=== PATIENT | male | born 1950 | race Caucasian/White ===

== ENCOUNTER 2024-03-19 16:32 | Inpatient (IN) | payer OTHER ==
[~2024-03-19] VITALS: Ht 180.3 cm; Wt 47.6 kg
[2024-03-19 16:43] LABS: BASOPHILS ABSOLUTE AUTO 0.07 K/mm3 (0.00-0.23); BASOPHILS PERCENT AUTO 0 % (0-2); EOSINOPHILS ABSOLUTE AUTO 0.01 K/mm3 (0.00-0.68); EOSINOPHILS PERCENT AUTO 0 % (0-6); Hematocrit 38.9 % (37.0-53.0); Hemoglobin 13.1 g/dL (13.5-17.5); IMMATURE GRAN PERCENT AUTO 1 % (0-1); LYMPHOCYTES ABSOLUTE AUTO 0.88 K/mm3 (0.84-5.20); LYMPHOCYTES PERCENT AUTO 4 % (21-46); MONOCYTES ABSOLUTE AUTO 0.94 K/mm3 (0.16-1.47); MONOCYTES PERCENT AUTO 5 % (4-13); Mean Corpuscular HGB 29.2 pg (26.0-34.0); Mean Corpuscular HGB Conc 33.7 g/dL (31.5-36.5); Mean Corpuscular Volume 87 fL (80-100); Mean Platelet Volume 8.2 fL (9.1-12.4); NEUTROPHILS ABSOLUTE AUTO 18.24 K/mm3 (1.96-9.15); NEUTROPHILS PERCENT AUTO 90 % (41-73); Platelet Count 639 K/mm3 (150-400); RDW Coefficient Variation 13.4 % (11.7-14.2); RDW Standard Deviation 42.5 fL (35.1-46.3); Red Blood Cell Count 4.49 M/mm3 (4.30-5.90); White Blood Cell Count 20.34 K/mm3 (4.00-11.30)
[2024-03-19 17:09] LABS: Albumin, Blood 2.4 g/dL (3.4-5.0); Albumin/Globulin Ratio 0.4 (0.8-1.8); Bilirubin, Total 0.4 mg/dL (0.1-1.0); Bun/Creatinine Ratio 18.2 (12.0-20.0); Calcium, Blood 9.7 mg/dL (8.5-10.1); Creatinine, Blood 0.77 mg/dL (0.60-1.20); Globulin, Blood 5.6 g/dL (2.2-4.0); Potassium, Blood 3.1 mmol/L (3.5-5.5)
[2024-03-19 18:11] LABS: Influenza A, PCR NEGATIVE (NEGATIVE); Influenza B, PCR NEGATIVE (NEGATIVE); Resp Syncytial Virus, PCR NEGATIVE (NEGATIVE); SARS-Cov-2 (COVID-19) PCR, MMC NEGATIVE (NEGATIVE)
[2024-03-19] MEDS ORDERED: Piperacillin/Tazobactam Sod 3.375 GM in NS 100 ML IV ONE (18:50)
[2024-03-19] MEDS ORDERED: Lactated Ringer's 1,000 ML IV ONE (20:15)
[2024-03-19] MEDS ORDERED: FLU VACC TS2024-25(6MOS UP)/PF 45 MCG/0.5 ML SYRINGE IM ONE (20:40)
[2024-03-19] MEDS ORDERED: Magnesium Hydroxide Conc 10 ML UDC PO PRN (20:40)
[2024-03-19] MEDS ORDERED: Lactobacil 2-S.Thermo-Bifido 1 1 Cap PO SCH (21:00)
[2024-03-19] MEDS ORDERED: Folic Acid 1 MG in NS 50 ML IV SCH (21:07)
[2024-03-19] MEDS ORDERED: Thiamine HCl 100 MG in NS 50 ML IV SCH (21:15)
[2024-03-19] MEDS ORDERED: NS KCl 20mEq 1,000 ML IV SCH (21:39)
[2024-03-19 22:11] VITALS: BP 117/78
[2024-03-19] MEDS ORDERED: NS 250 ML IV PRN (22:30)
--- NOTE | 2024-03-19 23:13 | NUR ---
ADMIT NOTE HANDOFF RECEIVED FROM GUMMING MACHINE OPERATOR BERNADETTE. PT ARRIVED TO FLOOR VIA GURNEY. PT ORIENTED TO UNIT. PERSONAL POSSESSIONS WITH PT. IV FLUIDS INFUSING. CALL BUTTON WITHIN REACH. BED ALARM IS ACTIVE.
[2024-03-20] MEDS ORDERED: Piperacillin/Tazobactam Sod 4.5 GM in NS 100 ML IV SCH
[2024-03-20] MEDS ORDERED: FINA5 PO (00:48)
[2024-03-20] MEDS ORDERED: TAMS.4ER PO (00:48)
[2024-03-20] MEDS ORDERED: LOSA50 PO (00:48)
[2024-03-20] MEDS ORDERED: EUTHYROX88 MCG PO (00:49)
[2024-03-20] MEDS ORDERED: AMLO10 PO (00:49)
--- NOTE | 2024-03-20 03:43 | NUR ---
SHIFT SUMMARY ADMITTED THIS SHIFT FOR PNEUMONIA. FULL CODE. IV ANTIB ARE SCHEDULED. ST SWALLOW EVAL IS PLANNED. HX OF ETOH - DAILY DRINKER, TONGUE CANCER W/DYSPHAGIA. HE IS ON RA. A&O X4. 1 ASSIST TO BSC DUE TO WEAKNESS. HE HAS NOT BEEN EATING WELL DUE TO HIS DYSPHAGIA. HE LOOKS FRAIL. NS KCL 20 MEQ INFUSING. HE IS A [facility] PATIENT. HE LIVES W/FAMILY.
[2024-03-20 05:37] LABS: BASOPHILS ABSOLUTE AUTO 0.06 K/mm3 (0.00-0.23); BASOPHILS PERCENT AUTO 0 % (0-2); EOSINOPHILS ABSOLUTE AUTO 0.05 K/mm3 (0.00-0.68); EOSINOPHILS PERCENT AUTO 0 % (0-6); Hematocrit 36.5 % (37.0-53.0); Hemoglobin 12.3 g/dL (13.5-17.5); IMMATURE GRAN PERCENT AUTO 2 % (0-1); LYMPHOCYTES PERCENT AUTO 7 % (21-46); MONOCYTES ABSOLUTE AUTO 0.81 K/mm3 (0.16-1.47); MONOCYTES PERCENT AUTO 6 % (4-13); Mean Corpuscular HGB 29.2 pg (26.0-34.0); Mean Corpuscular HGB Conc 33.7 g/dL (31.5-36.5); Mean Corpuscular Volume 87 fL (80-100); Mean Platelet Volume 8.2 fL (9.1-12.4); NEUTROPHILS ABSOLUTE AUTO 11.65 K/mm3 (1.96-9.15); NEUTROPHILS PERCENT AUTO 85 % (41-73); Platelet Count 565 K/mm3 (150-400); RDW Coefficient Variation 13.3 % (11.7-14.2); RDW Standard Deviation 42.1 fL (35.1-46.3); Red Blood Cell Count 4.21 M/mm3 (4.30-5.90); White Blood Cell Count 13.77 K/mm3 (4.00-11.30)
[2024-03-20] MEDS ORDERED: Levothyroxine Sodium 0.088 MG Tab PO SCH (06:00)
[2024-03-20 06:08] LABS: Magnesium, Blood 1.5 mg/dL (1.6-2.4)
[2024-03-20 06:15] LABS: Albumin, Blood 2.1 g/dL (3.4-5.0); Albumin/Globulin Ratio 0.4 (0.8-1.8); Bilirubin, Total 0.5 mg/dL (0.1-1.0); Bun/Creatinine Ratio 18.1 (12.0-20.0); Calcium, Blood 8.9 mg/dL (8.5-10.1); Creatinine, Blood 0.55 mg/dL (0.60-1.20); Phosphorus, Blood 2.5 mg/dL (2.5-4.9); Potassium, Blood 3.1 mmol/L (3.5-5.5); Thyroid Stimulating Hormone 0.242 uIU/mL (0.360-4.800); Total Protein, Blood 7.1 g/dL (6.4-8.2)
[2024-03-20 06:30] VITALS: BP 124/73
[2024-03-20] MEDS ORDERED: Potassium Chl 20MEQ/Water100ML 100 ML IV SCH (07:10)
[2024-03-20] MEDS ORDERED: Mag Sulfate 1 GM/D5% 100ML 100 ML IV STA (07:11)
[2024-03-20] MEDS ORDERED: Magnesium Sulf 2 GM/Water 50ML 50 ML IV ONE (07:45)
[2024-03-20 07:55] LABS: Free Thyroxine 1.42 ng/dL (0.70-1.60)
[2024-03-20 07:57] LABS: Triiodothyronine, Free 0.85 pg/mL (2.18-3.98)
[2024-03-20 08:53] VITALS: BP 122/73
[2024-03-20] MEDS ORDERED: Finasteride 5 MG Tab PO SCH (09:00)
[2024-03-20] MEDS ORDERED: Tamsulosin HCl 0.4 MG Cap PO SCH (09:00)
[2024-03-20] MEDS ORDERED: Aspirin 81 MG Chew PO SCH (09:00)
[2024-03-20] MEDS ORDERED: Enoxaparin 40 MG/0.4 ML SYR SC SCH (09:00)
--- NOTE | 2024-03-20 13:55 | NUR ---
PALLIATIVE CARE ATTEMPTED VISIT: PER PT REQUEST, HOLD VISIT FOR TODAY AND ATTEMPT VISIT TOMORROW 03/21/24.
--- NOTE | 2024-03-20 15:35 | NUR ---
SPOKE WITH PT'S DTRRADHA BY PHONE THIS AFTERNOON. DTR WILL BE HERE TOMORROW 03/21/24 @ 1400 FOR A GOC CONVERSATION WITH PC, SPEECH AND PATIENT.
[2024-03-20 15:37] VITALS: BP 103/69
--- NOTE | 2024-03-20 18:12 | NUR ---
SHIFT SUMMARY PT A&OX4, VSS, AMB W/ ASSIST, VOIDING, AND DENIED PAIN. KCL CONT TO INFUSE PER ORDER. IV K AND MAG GIVEN THIS AM. PALLIATIVE CARE TO SPEAK W/ PT AND PT'S DAUGHTER TOMORROW. PT IS STRICTLY NPO INCLUDING MEDICATIONS, SEE SPEECH THERAPY NOTE. PT WORKED W/ PHYSICAL THERAPY THIS SHIFT, SEE THERAPY NOTE. CALL LIGHT WITHIN REACH AND PT ABLE TO MAKE NEEDS KNOWN.
[2024-03-20 19:25] VITALS: BP 123/74
[2024-03-21 03:35] VITALS: BP 112/73
[2024-03-21 05:29] LABS: BASOPHILS ABSOLUTE AUTO 0.05 K/mm3 (0.00-0.23); BASOPHILS PERCENT AUTO 0 % (0-2); EOSINOPHILS ABSOLUTE AUTO 0.03 K/mm3 (0.00-0.68); EOSINOPHILS PERCENT AUTO 0 % (0-6); Hematocrit 35.6 % (37.0-53.0); Hemoglobin 11.9 g/dL (13.5-17.5); IMMATURE GRAN ABSOLUTE AUTO 0.23 K/mm3 (0.00-0.10); IMMATURE GRAN PERCENT AUTO 2 % (0-1); LYMPHOCYTES PERCENT AUTO 7 % (21-46); MONOCYTES ABSOLUTE AUTO 0.71 K/mm3 (0.16-1.47); MONOCYTES PERCENT AUTO 6 % (4-13); Mean Corpuscular HGB Conc 33.4 g/dL (31.5-36.5); Mean Corpuscular Volume 87 fL (80-100); Mean Platelet Volume 8.2 fL (9.1-12.4); NEUTROPHILS ABSOLUTE AUTO 10.32 K/mm3 (1.96-9.15); NEUTROPHILS PERCENT AUTO 85 % (41-73); Platelet Count 594 K/mm3 (150-400); RDW Coefficient Variation 13.5 % (11.7-14.2); RDW Standard Deviation 43.4 fL (35.1-46.3); White Blood Cell Count 12.14 K/mm3 (4.00-11.30)
[2024-03-21 05:51] LABS: Albumin, Blood 2.2 g/dL (3.4-5.0); Albumin/Globulin Ratio 0.4 (0.8-1.8); Bilirubin, Total 0.4 mg/dL (0.1-1.0); Bun/Creatinine Ratio 14.1 (12.0-20.0); Calcium, Blood 8.6 mg/dL (8.5-10.1); Creatinine, Blood 0.5 mg/dL (0.60-1.20); Total Protein, Blood 7.2 g/dL (6.4-8.2)
--- NOTE | 2024-03-21 06:00 | NUR ---
SHIFT SUMMARY: Pt is admitted for PNA and is a full code. Is alert and able to make needs known. ADLs have been 1p. Denies pain or discomfort when asked.
[2024-03-21] MEDS ORDERED: Potassium Chl 20MEQ/Water100ML 100 ML IV SCH (07:15)
[2024-03-21 07:43] VITALS: BP 126/76
[2024-03-21 15:37] VITALS: BP 123/79
[2024-03-21] MEDS ORDERED: D5W-LR 1,000 ML IV SCH (16:00)
--- NOTE | 2024-03-21 16:40 | NUR ---
Met with pt and daughter Petra along with . 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 Pt and daughter both in agreement to try a PEG tube. Surgical consult being placed by .
--- NOTE | 2024-03-21 18:16 | NUR ---
PT ALERT AND ORIENTED, VITAL SIGNS STABLE, NON-TELE, AND ROOM AIR. PT IS STRICT NPO DUE TO UNSAFE SWALLOWING. AM BLOOD SUGAR 68 MD AWARE, PENDING CONSULT FOR REAL ESTATE INSPECTOR. PALLIATIVE CARE RN AND SPEECH THERAPIST SPOKE WITH PT AND DAUGHTER THIS AFTERNOON, AND THEY AGREED TO A PEG TUBE FOR PT NUTRITIONAL NEEDS, CONSULT IN PLACE. PT IV FLUIDS CHANGED TO D5W/LR, PM BLOOD SUGAR UP TO 97. PT REPORTS HX OF ETOH, 8 BEERS/DAY, CIWA-0. K+ REPLACED PER ORDER, IV ZOSYN CONTINUED. URINAL AT BEDSIDE WITH GOOD URINE OUTPUT. PT ABLE TO MAKE NEEDS KNOWN, BED IN LOW POSITION, CALL LIGHT IN REACH.
[2024-03-21 19:44] VITALS: BP 129/77
[2024-03-22 01:57] VITALS: BP 139/82
[2024-03-22 06:43] LABS: BASOPHILS ABSOLUTE AUTO 0.04 K/mm3 (0.00-0.23); BASOPHILS PERCENT AUTO 0 % (0-2); EOSINOPHILS ABSOLUTE AUTO 0.04 K/mm3 (0.00-0.68); EOSINOPHILS PERCENT AUTO 0 % (0-6); Hematocrit 39.3 % (37.0-53.0); Hemoglobin 13.2 g/dL (13.5-17.5); IMMATURE GRAN ABSOLUTE AUTO 0.23 K/mm3 (0.00-0.10); IMMATURE GRAN PERCENT AUTO 2 % (0-1); LYMPHOCYTES PERCENT AUTO 9 % (21-46); MONOCYTES ABSOLUTE AUTO 0.83 K/mm3 (0.16-1.47); MONOCYTES PERCENT AUTO 7 % (4-13); Mean Corpuscular HGB 28.6 pg (26.0-34.0); Mean Corpuscular HGB Conc 33.6 g/dL (31.5-36.5); Mean Corpuscular Volume 85 fL (80-100); Mean Platelet Volume 8.2 fL (9.1-12.4); NEUTROPHILS ABSOLUTE AUTO 9.98 K/mm3 (1.96-9.15); NEUTROPHILS PERCENT AUTO 82 % (41-73); Platelet Count 629 K/mm3 (150-400); RDW Coefficient Variation 13.5 % (11.7-14.2); RDW Standard Deviation 42.4 fL (35.1-46.3); Red Blood Cell Count 4.61 M/mm3 (4.30-5.90); White Blood Cell Count 12.22 K/mm3 (4.00-11.30)
[2024-03-22 07:12] LABS: Albumin, Blood 2.3 g/dL (3.4-5.0); Albumin/Globulin Ratio 0.4 (0.8-1.8); Bilirubin, Total 0.4 mg/dL (0.1-1.0); Bun/Creatinine Ratio 8.2 (12.0-20.0); Calcium, Blood 8.8 mg/dL (8.5-10.1); Creatinine, Blood 0.49 mg/dL (0.60-1.20); Globulin, Blood 5.6 g/dL (2.2-4.0); Potassium, Blood 2.6 mmol/L (3.5-5.5); Total Protein, Blood 7.9 g/dL (6.4-8.2)
[2024-03-22] MEDS ORDERED: Potassium Chl 20MEQ/Water100ML 100 ML IV SCH (07:35)
[2024-03-22 07:37] VITALS: BP 139/84
[2024-03-22 15:51] VITALS: BP 132/87
[2024-03-22 17:37] LABS: Magnesium, Blood 1.5 mg/dL (1.6-2.4); Phosphorus, Blood 1.7 mg/dL (2.5-4.9)
[2024-03-22 17:43] LABS: Bun/Creatinine Ratio 8.9 (12.0-20.0); Calcium, Blood 8.7 mg/dL (8.5-10.1); Creatinine, Blood 0.45 mg/dL (0.60-1.20); Potassium, Blood 3.2 mmol/L (3.5-5.5)
--- NOTE | 2024-03-22 18:20 | NUR ---
DR. DE LUNA NOTIFIED POTASSIUM LEVEL IS 3.2, MAGNESIUM LEVEL 1.5, AND PHOSPHORUS IS 1.7. DR. DE LUNA STATED SHE WOULD LET NIGHT TEAM KNOW.
--- NOTE | 2024-03-22 18:39 | NUR ---
SHIFT SUMMARY PT A&OX4. PT ADMITTED DUE TO PNEUMONIA. PT RECIEVED ANTIBIOTICS THROUGH SHIFT. PT HAS A PRODUCTIVE COUGH. PT REPORTS NO COMPLAINTS OF SOB AND CHEST DISCOMFORT. PT REPORTED NO PAIN THROUGH SHIFT. PT USES CANE WHEN AMBULATING. PT USES URINAL. D5LR RUNNING AT 75ML/HR PT'S DAUGHTER AT BEDSIDE. CALL LIGHT IN REACH AND USES CALL LIGHT APPROPRIATELY. PT NPO. PT HAVING PEG TUBE PLACEMENT TOMORROW. NO ACUTE CHANGES HAPPENED DURING SHIFT.
[2024-03-22] MEDS ORDERED: Potassium Phosphate Dibasic 30 MM in Dextrose 5% 500 ML IV STA (18:40)
[2024-03-22] MEDS ORDERED: Magnesium Sulf 2 GM/Water 50ML 50 ML IV STA (18:40)
[2024-03-22] MEDS ORDERED: Calcium Chloride 10% 1,000 MG in NS 50 ML IV ONE (18:45)
[2024-03-22 19:55] VITALS: BP 128/83
[2024-03-23 01:39] VITALS: BP 132/85
--- NOTE | 2024-03-23 04:47 | NUR ---
PREVENTIVE MEDICINE PHYSICIAN SUMMARY VSS. ALERT AND ORIENTED. SPEECH DIFFICULT, BUT ABLE TO VOICE HIGH PITCHED WORDS. OTHERWISE COMMUNICATES WITH BODY LANGUAGE AND MOUTHING THE WORDS. NPO. RECEIVING IVF AND MEDS ORDERED. CONTINENT WITH URINAL, NO BM OF THIS WRITING. HAS HAD VISITORS THROUGHOUT FIRST PART OF SHIFT. ABLE TO DO OWN ORAL CARE WITH INSTRUMENTS AT BEDSIDE. ABLE TO REPOSITION SELF IN BED WITHOUT ASSIST FOR COMFORT. RAILS UP X 2, BED IN LOW POSITION AND CALL LIGHT IN REACH FOR SAFETY. HAS BEEN RESTING QUIETLY WITH FEW INTERRUPTIONS SINCE AROUND MIDNIGHT. WILL CONTINUE TO MONITOR.
[2024-03-23 06:28] LABS: BASOPHILS ABSOLUTE AUTO 0.05 K/mm3 (0.00-0.23); BASOPHILS PERCENT AUTO 1 % (0-2); EOSINOPHILS ABSOLUTE AUTO 0.05 K/mm3 (0.00-0.68); EOSINOPHILS PERCENT AUTO 1 % (0-6); Hematocrit 40.2 % (37.0-53.0); Hemoglobin 13.8 g/dL (13.5-17.5); IMMATURE GRAN ABSOLUTE AUTO 0.12 K/mm3 (0.00-0.10); IMMATURE GRAN PERCENT AUTO 1 % (0-1); LYMPHOCYTES ABSOLUTE AUTO 1.01 K/mm3 (0.84-5.20); LYMPHOCYTES PERCENT AUTO 9 % (21-46); MONOCYTES ABSOLUTE AUTO 0.67 K/mm3 (0.16-1.47); MONOCYTES PERCENT AUTO 6 % (4-13); Mean Corpuscular HGB Conc 34.3 g/dL (31.5-36.5); Mean Corpuscular Volume 85 fL (80-100); Mean Platelet Volume 8.1 fL (9.1-12.4); NEUTROPHILS ABSOLUTE AUTO 8.85 K/mm3 (1.96-9.15); NEUTROPHILS PERCENT AUTO 82 % (41-73); Platelet Count 580 K/mm3 (150-400); RDW Coefficient Variation 13.6 % (11.7-14.2); RDW Standard Deviation 42.1 fL (35.1-46.3); Red Blood Cell Count 4.76 M/mm3 (4.30-5.90); White Blood Cell Count 10.75 K/mm3 (4.00-11.30)
[2024-03-23 07:27] LABS: Albumin, Blood 2.3 g/dL (3.4-5.0); Albumin/Globulin Ratio 0.4 (0.8-1.8); Bilirubin, Total 0.3 mg/dL (0.1-1.0); Bun/Creatinine Ratio 10.1 (12.0-20.0); Calcium, Blood 9.6 mg/dL (8.5-10.1); Creatinine, Blood 0.49 mg/dL (0.60-1.20); Globulin, Blood 5.3 g/dL (2.2-4.0); Potassium, Blood 3.2 mmol/L (3.5-5.5); Total Protein, Blood 7.6 g/dL (6.4-8.2)
[2024-03-23 07:45] VITALS: BP 122/84
[2024-03-23] MEDS ORDERED: Potassium Chl 20MEQ/Water100ML 100 ML IV SCH (12:05)
[2024-03-23] MEDS ORDERED: Lactated Ringer's 1,000 ML IV SCH (13:15)
[2024-03-23] MEDS ORDERED: Thiamine HCl 300 MG in NS 100 ML IV SCH (14:00)
[2024-03-23 15:33] VITALS: BP 132/87
--- NOTE | 2024-03-23 18:41 | NUR ---
SHIFT SUMMARY PT A&OX4, PT ADMITTED DUE TO PNEUMONIA. PT RECIEVED ANTIBIOTIC TODAY, THIAMINE AND POTASSIUM GIVEN, LR IS RUNNING AT 150ML/HR. PT HAS OCCASSIONAL AND PRODUCTIVE COUGH. PT IS NPO. PT USES MOUTH SWABS TO CLEAN MOUTH. PLAN FOR PEG TUBE PLACEMENT TOMORROW. PT AMBULATES WITH CANE BUT IS SBA DUE TO WEAKNESS. NO ACUTE CHANGES NOTED. PT VOIDES USING URINAL. PT ON RA AND HAS NO COMPLAINTS OF SOB. PT CALLS APPROPRIATELY, CALL LIGHT IN REACH. FAMILY AT BEDSIDE.
[2024-03-23 20:12] VITALS: BP 139/92
[2024-03-24] VITALS (8 sets, daily range): BP systolic 95–157; BP diastolic 60–98
--- NOTE | 2024-03-24 03:57 | NUR ---
BRAKE ADJUSTER SUMMARY VSS. ALERT AND ORIENTED. ABLE TO MAKE NEEDS KNOWN WITH HIGH PITCHED VOICE AND MOUTHING WORDS AND BODY LANGUAGE. IV ANTIBIOTICS, AND IVF INFUSING PER MD ORDERS - SEE MAR FOR DETAILS. NPO. CONTINENT OF URINE. HOB ELEVATED FOR BREATHING COMFORT. RESTING QUIETLY AT INTERVALS WITH OCCASIONAL INTERRUPTION. VERBALIZED LOOKING FORWARD TO POSSIBLE SURGICAL PROCEDURE LATER TODAY FOR TUBE PLACEMENT FOR FEEDING. ABLE TO REPOSITION SELF IN BED WITHOUT ASSIST, RAILS UP X 2 AND BED IN LOW POSITION FOR SAFETY. WILL CONTINUE TO MONITOR.
[2024-03-24 06:05] LABS: BASOPHILS ABSOLUTE AUTO 0.04 K/mm3 (0.00-0.23); BASOPHILS PERCENT AUTO 0 % (0-2); EOSINOPHILS ABSOLUTE AUTO 0.04 K/mm3 (0.00-0.68); EOSINOPHILS PERCENT AUTO 0 % (0-6); Hematocrit 38.8 % (37.0-53.0); Hemoglobin 13.1 g/dL (13.5-17.5); IMMATURE GRAN ABSOLUTE AUTO 0.13 K/mm3 (0.00-0.10); IMMATURE GRAN PERCENT AUTO 1 % (0-1); LYMPHOCYTES ABSOLUTE AUTO 1.13 K/mm3 (0.84-5.20); LYMPHOCYTES PERCENT AUTO 10 % (21-46); MONOCYTES ABSOLUTE AUTO 0.68 K/mm3 (0.16-1.47); MONOCYTES PERCENT AUTO 6 % (4-13); Mean Corpuscular HGB 28.7 pg (26.0-34.0); Mean Corpuscular HGB Conc 33.8 g/dL (31.5-36.5); Mean Corpuscular Volume 85 fL (80-100); Mean Platelet Volume 8.1 fL (9.1-12.4); NEUTROPHILS ABSOLUTE AUTO 9.75 K/mm3 (1.96-9.15); NEUTROPHILS PERCENT AUTO 83 % (41-73); Platelet Count 502 K/mm3 (150-400); RDW Coefficient Variation 13.6 % (11.7-14.2); RDW Standard Deviation 42.2 fL (35.1-46.3); Red Blood Cell Count 4.57 M/mm3 (4.30-5.90); White Blood Cell Count 11.77 K/mm3 (4.00-11.30)
[2024-03-24 06:31] LABS: Bun/Creatinine Ratio 14.5 (12.0-20.0); Calcium, Blood 8.8 mg/dL (8.5-10.1); Creatinine, Blood 0.55 mg/dL (0.60-1.20); Magnesium, Blood 1.6 mg/dL (1.6-2.4); Phosphorus, Blood 2.5 mg/dL (2.5-4.9); Potassium, Blood 2.6 mmol/L (3.5-5.5)
[2024-03-24] MEDS ORDERED: Magnesium Sulf 2 GM/Water 50ML 50 ML IV STA (07:48)
[2024-03-24] MEDS ORDERED: Potassium Chl 20MEQ/Water100ML 100 ML IV SCH (07:50)
[2024-03-24] MEDS ORDERED: propofoL 40 ML IV ONE (09:58)
[2024-03-24] MEDS ORDERED: Lactated Ringer's 1,000 ML IV SCH (10:00)
[2024-03-24] MEDS ORDERED: NS 500 ML IV SCH (10:40)
--- NOTE | 2024-03-24 10:42 | NUR ---
03/24/24 1042 Kaitlin Israel WITH CINTHIA NAVARRO; SEE ANESTHESIA RECORDS.
[2024-03-24] MEDS ORDERED: FentaNYL Citrate 50 MCG/ML 2 ML Injection IV PRN (12:15)
[2024-03-24] MEDS ORDERED: Levothyroxine Sodium 0.05 MG Tab PO SCH (15:00)
--- NOTE | 2024-03-24 18:14 | NUR ---
SHIFT SUMMARY PT A&O TO SELF, SITUATION, AND PERSON. PT HAS SOFT VOICE BUT IS ABLE TO ANSWER QUESTIONS APPROPRIATELY AND MAKES NEEDS KNOWN. PT WAS NPO PENDING PEG TUBE PLACEMENT. PT RECEIVED PEG TUBE TODAY, PHOTO IN CHART. PEG TUBE IS PETENT, DRESSING C/D/I. MEDICATION GIVEN VIA PEGG TUBE. PRN AND SCHEDULED MEDS ADMINISTERED, PO HELD IN AM PRIOR TO PEG TUBE PLACEMENT. VSS, NO COMPLAINTS OF CP/PRESSURE OR SOB. PT REPOSITIONED Q2HRS. FALL PRECAUTIONS IN PLACE AND CALL LIGHT IN REACH.
[2024-03-25 03:04] VITALS: BP 123/86
--- NOTE | 2024-03-25 04:00 | NUR ---
NOZZLE CEMENT SPRAYER HELPER SUMMARY VSS. ALERT AND ORIENTED. PEG TUBE FLUSHED WITH H2O, PATENT. NO NOTED DISTRESS WITH FLUSH. OCCASIONAL ABD DISCOMFORT FOR WHICH HE RECEIVED PRN PAIN MED - SEE MAR FOR DETAILS. ALERT AND ORIENTED X 4. IV ANTIBIOTICS INFUSING ORDERED. LUNG SOUNDS CLEAR. REMAINS NPO, DOING SELF ORAL CARE WITH SWABS AND WATER. ABLE TO REPOSITION SELF IN BED WITHOUT ASSIST FOR SKIN MAINTENANCE AND COMFORT. OTHERWISE HAS BEEN RESTING QUIIETLY WITH FEW INTERUPTIONS. CALL LIGHT IN REACH, RAILS UP X 2 AND BED IN LOW POSITION FOR SAFETY. WILL CONTINUE TO MONITOR.
[2024-03-25 05:37] LABS: Hematocrit 41.6 % (37.0-53.0); Hemoglobin 13.8 g/dL (13.5-17.5); Mean Corpuscular HGB Conc 33.2 g/dL (31.5-36.5); Mean Corpuscular Volume 87 fL (80-100); Mean Platelet Volume 8.8 fL (9.1-12.4); Platelet Count 452 K/mm3 (150-400); RDW Coefficient Variation 13.7 % (11.7-14.2); RDW Standard Deviation 43.9 fL (35.1-46.3); Red Blood Cell Count 4.76 M/mm3 (4.30-5.90); White Blood Cell Count 33.72 K/mm3 (4.00-11.30)
[2024-03-25 06:09] LABS: Albumin, Blood 2.1 g/dL (3.4-5.0); Albumin/Globulin Ratio 0.4 (0.8-1.8); Bilirubin, Total 0.5 mg/dL (0.1-1.0); Bun/Creatinine Ratio 17.7 (12.0-20.0); Calcium, Blood 8.8 mg/dL (8.5-10.1); Creatinine, Blood 0.79 mg/dL (0.60-1.20); Globulin, Blood 4.8 g/dL (2.2-4.0); Potassium, Blood 2.8 mmol/L (3.5-5.5); Total Protein, Blood 6.9 g/dL (6.4-8.2)
[2024-03-25 07:27] VITALS: BP 119/77
[2024-03-25] MEDS ORDERED: Potassium Chl 20MEQ/Water100ML 100 ML IV SCH (07:30)
[2024-03-25] MEDS ORDERED: Dextrose 5% 1,000 ML IV SCH (08:05)
[2024-03-25] MEDS ORDERED: Docusate Sodium 100 MG UDC PT PRN (14:00)
[2024-03-25] MEDS ORDERED: Bisacodyl 10 MG Supp PR PRN (14:00)
[2024-03-25 15:05] VITALS: BP 140/85
--- NOTE | 2024-03-25 17:33 | NUR ---
NOTE FEEDING STARTED AT 1515. PT DOESNT COMPLAIN OF DISCOMFORT/DISTENTION ONLY SARP PAIN AT SITE WHEN PT COUGHS OR MOVES.
--- NOTE | 2024-03-25 18:45 | NUR ---
SHIFT SUMMARY PT A&OX4. PT ADMITTED DUE TO PNEUMONIA. TUBE FEEDINGS WERE STARTED AT 1515. PT DENIES DISCOMFORT, DISTENTION OR S/S OF REFEEDING SYNDROME. FEEDINGS ARE RUNNING AT 35ML/HR. PEG TUBE IS C/D/I AT SITE. PT ABD IS SOFT. PT REPORTS SHARP PAIN AT SITE DURING COUGHING AND MOVEMENT. PT RECIEVED POTASSIUM X3. PT RECIEVED ANTIBIOTICS AND A ONE TIME BAG OF D5. PT HAS GENERALIZED WEAKNESS AND USES CANE. PT HAS DYSPHAGIA AND IS NPO. PT PERFORMED ORAL CARE FREQUENTLY. PT REPOSITIONS IN BED. PT USES URINAL TO VOID, PT REPORTS NO BM. PT CALLS APPROPRIATE, PLEASANT AND CALL LIGHT IN REACH.
[2024-03-25 19:40] VITALS: BP 103/73
[2024-03-25 23:36] LABS: Bun/Creatinine Ratio 20.3 (12.0-20.0); Calcium, Blood 8.4 mg/dL (8.5-10.1); Creatinine, Blood 0.84 mg/dL (0.60-1.20); Phosphorus, Blood 1.1 mg/dL (2.5-4.9); Potassium, Blood 3.4 mmol/L (3.5-5.5)
[2024-03-26] VITALS (7 sets, daily range): BP systolic 118–135; BP diastolic 75–94
--- NOTE | 2024-03-26 04:42 | NUR ---
SHIFT SUMMARY. PATIENT IS A&OX4. PATIENT IS VERY SOFT SPOKEN D/T S/P PARTIAL TOUNG REMOVAL IN THE 90'S. PATIENT CALLS APPROPRIATELY AND IS ABLE TO MAKE HIS NEEDS KNOWN. PATIENT C/O ABD PAIN-PATIENT HAD AN INCREASE IN PAIN-TUBE FEEDING DECREASED TO 30ML'S/HR WITH IMPROVEMENT IN PAIN-AT 0400 TUBE FEEDING INCREASED BACK TO 35ML'S/HR AND PATIENT IS TOLERATING WELL AT THIS TIME. PATIENT HAS URINAL AT BEDSIDE. PATIENT HAD NO BM TODAY-PATIENT STARTED TUBE FEEDING 03/25/24, PRIOR TO THAT PATIENT HAD NOT EATEN D/T REGURGITATION. GRANDSON BROUGHT IN UNDERWEAR THIS MORNING AT 0430. PATIENT IS PLEASANT AND COOPERATIVE WITH CARE. BED IS LOCKED IN THE LOWEST POSITION [facility] CALL LIGHT IN REACH. CARE IS ONGOING.
[2024-03-26 06:18] LABS: BASOPHILS ABSOLUTE AUTO 0.03 K/mm3 (0.00-0.23); BASOPHILS PERCENT AUTO 0 % (0-2); EOSINOPHILS ABSOLUTE AUTO 0.03 K/mm3 (0.00-0.68); EOSINOPHILS PERCENT AUTO 0 % (0-6); Hematocrit 37.1 % (37.0-53.0); Hemoglobin 12.3 g/dL (13.5-17.5); IMMATURE GRAN ABSOLUTE AUTO 0.23 K/mm3 (0.00-0.10); IMMATURE GRAN PERCENT AUTO 1 % (0-1); LYMPHOCYTES ABSOLUTE AUTO 0.74 K/mm3 (0.84-5.20); LYMPHOCYTES PERCENT AUTO 4 % (21-46); MONOCYTES PERCENT AUTO 3 % (4-13); Mean Corpuscular HGB 28.9 pg (26.0-34.0); Mean Corpuscular HGB Conc 33.2 g/dL (31.5-36.5); Mean Corpuscular Volume 87 fL (80-100); Mean Platelet Volume 9.2 fL (9.1-12.4); NEUTROPHILS PERCENT AUTO 92 % (41-73); Platelet Count 383 K/mm3 (150-400); RDW Coefficient Variation 13.9 % (11.7-14.2); RDW Standard Deviation 44.2 fL (35.1-46.3); Red Blood Cell Count 4.26 M/mm3 (4.30-5.90); White Blood Cell Count 20.73 K/mm3 (4.00-11.30)
[2024-03-26 06:39] LABS: Bun/Creatinine Ratio 19.7 (12.0-20.0); Calcium, Blood 8.9 mg/dL (8.5-10.1); Creatinine, Blood 0.76 mg/dL (0.60-1.20); Magnesium, Blood 1.9 mg/dL (1.6-2.4); Phosphorus, Blood 1.2 mg/dL (2.5-4.9)
[2024-03-26] MEDS ORDERED: Potassium Phosphate Dibasic 25 MM in Dextrose 5% 500 ML IV SCH (07:30)
[2024-03-26] MEDS ORDERED: Lactated Ringer's 500 ML IV SCH (11:15)
[2024-03-26] MEDS ORDERED: Lactated Ringer's 1,000 ML IV ONE (12:00)
[2024-03-26 13:58] LABS: Bun/Creatinine Ratio 16.5 (12.0-20.0); Calcium, Blood 8.5 mg/dL (8.5-10.1); Creatinine, Blood 0.67 mg/dL (0.60-1.20); Magnesium, Blood 1.7 mg/dL (1.6-2.4); Phosphorus, Blood 2.8 mg/dL (2.5-4.9); Potassium, Blood 2.9 mmol/L (3.5-5.5)
[2024-03-26] MEDS ORDERED: Potassium Chl 20MEQ/Water100ML 100 ML IV SCH (16:15)
[2024-03-26] MEDS ORDERED: Mag Sulfate 1 GM/D5% 100ML 100 ML IV STA (16:25)
[2024-03-26] MEDS ORDERED: Potassium Chloride 20 MEQ/15 ML UDC PT ONE (17:00)
--- NOTE | 2024-03-26 19:04 | NUR ---
SHIFT SUMMARY PT IS A&OX4. PT ADMITTED DUE TO PNEUMONIA. PT PEG TUBE IN PLACE, SITE IS C/D/I WITH GAUZE AND TAPE THAT IS SECURED. PT REPORTS SOME SHARP PAIN AT SITE, PAIN MANAGED PER EMAR. TUBE FEEDINGS RUNNING CONTINOUS, FEEDINGS RUNNING AT 35ML/HR AND FLUSH Q4. PT REPORTS SOME DIZZINESS WHEN STANDING. ORTHOSTATIC VITALS COMPLETE, SOME HYPOTENSION NOTED. PT NPO. PT HAD STOOLS TODAY IN ATTENDS, ATTENDS CHANGED PRN. PHYSICAL THERAPY ATTEMPTED TO WORK WITH PT TODAY. PT USES URINAL TO VOID. PT CALLS APPROPRIATELY, CALL LIGHT IN REACH. PT REPOSITIONED Q2 HOURS. PT PREFORMS ORAL CARE FREQUENTLY. PT HAS OCCASIONAL AND PRODUCTIVE COUGH.
[2024-03-26] MEDS ORDERED: Loperamide HCL 1 MG/7.5 ML UDC PT ONE (20:55)
--- NOTE | 2024-03-26 20:55 | NUR ---
HOSPITALIST CONTACTED. PATIENT HAS HAD LOOSE BM'S THIS SHIFT X3 AND PATIENT HAS HAD3 LOOSE BM'S ON DAY SHIFT. ANGELICA ORDERED A ONE TIME DOSE OF LIQUID IMMODIUM-SEE ORDERS
--- NOTE | 2024-03-26 22:53 | NUR ---
PEG TUBE SITE CLEANED AND GAUZE CHANGED. PATIENT TOLERATED WELL. SITE IS WNL, NO REDNESS NOTED.
[2024-03-27 03:36] VITALS: BP 122/77
--- NOTE | 2024-03-27 04:47 | NUR ---
SHIFT SUMMARY. PATIENT IS A&OX4. PATIENT IS SOFT SPOKEN. PATIENT CALLS APPROPRIATELY AND IS ABLE TO MAKE HIS NEEDS KNOWN. PATIENT IS CURRENTLY RECEIVING JEVITY 1.2 VIA PEG TUBE AT 35mLS/hr-PATIENT TOLERATING THIS SHIFT. PATIENT REPORTS PAIN AT INSERTION SITE OF PEG TUBE. DRESSING TO PEG TUBE TUBE CHANGED-SEE PREVIOUS NOTES. PATIENT IS PLEASANT AND COOPERATIVE WITH CARE. PATIENT HAS HAD SEVERAL EPISODES OF SOFT TO LOOSE BM'S THIS SHIFT-PATIENT RECEIVED A 1 TIME DOES OF LIQUID IMODIUM THAT HAS IMPROVED SOFT-LOOSE STOOLS. PATIENT C/O PAIN-MEDICATED PER EMAR. PATIENTS HEAD OF BED REMAINS AT 35 DEGREES. PATIENT REPOSITIONED WITH PILLOWS FOR REDNESS TO COCCYX-PATIENT ALSO MOVES SELF IN BED. BED IS LOCKED IN THE LOWEST POSITION WITH CALL LIGHT IN REACH. CARE IS ONGOING.
[2024-03-27] MEDS ORDERED: Acetaminophen 160MG / 5ML 10.15 UDC PT PRN (07:30)
[2024-03-27 07:31] LABS: BASOPHILS ABSOLUTE AUTO 0.02 K/mm3 (0.00-0.23); BASOPHILS PERCENT AUTO 0 % (0-2); EOSINOPHILS PERCENT AUTO 1 % (0-6); Hematocrit 32.4 % (37.0-53.0); Hemoglobin 10.6 g/dL (13.5-17.5); IMMATURE GRAN ABSOLUTE AUTO 0.13 K/mm3 (0.00-0.10); IMMATURE GRAN PERCENT AUTO 1 % (0-1); LYMPHOCYTES PERCENT AUTO 7 % (21-46); MONOCYTES PERCENT AUTO 4 % (4-13); Mean Corpuscular HGB 28.3 pg (26.0-34.0); Mean Corpuscular HGB Conc 32.7 g/dL (31.5-36.5); Mean Corpuscular Volume 86 fL (80-100); Mean Platelet Volume 9.7 fL (9.1-12.4); NEUTROPHILS ABSOLUTE AUTO 12.96 K/mm3 (1.96-9.15); NEUTROPHILS PERCENT AUTO 87 % (41-73); Platelet Count 341 K/mm3 (150-400); RDW Coefficient Variation 13.8 % (11.7-14.2); RDW Standard Deviation 43.8 fL (35.1-46.3); Red Blood Cell Count 3.75 M/mm3 (4.30-5.90); White Blood Cell Count 14.81 K/mm3 (4.00-11.30)
[2024-03-27 07:32] VITALS: BP 110/71
[2024-03-27] MEDS ORDERED: HYDROcodone 5-APAP 325 TAB PT PRN (07:35)
[2024-03-27 07:49] LABS: Bun/Creatinine Ratio 11.3 (12.0-20.0); Calcium, Blood 8.1 mg/dL (8.5-10.1); Creatinine, Blood 0.62 mg/dL (0.60-1.20); Magnesium, Blood 1.9 mg/dL (1.6-2.4); Phosphorus, Blood 2.3 mg/dL (2.5-4.9); Potassium, Blood 2.9 mmol/L (3.5-5.5)
[2024-03-27] MEDS ORDERED: Potassium Phosphate Dibasic 30 MM in Dextrose 5% 500 ML IV STA (08:39)
[2024-03-27] MEDS ORDERED: Thiamine HCl 100 MG Tab PT SCH (09:00)
[2024-03-27] MEDS ORDERED: Tamsulosin HCl 0.4 MG Cap PT SCH (09:00)
[2024-03-27] MEDS ORDERED: Finasteride 5 MG Tab PT SCH (09:00)
[2024-03-27] MEDS ORDERED: Aspirin 81 MG Chew PT SCH (09:00)
--- NOTE | 2024-03-27 10:24 | NUR ---
PT IS A/O X 4, ONE ASSIST PIVOT TX AT THIS TIME. PT IS TOLERATING TUBE FEED AT RATE OF 35 ML. ADVANCED TO 40 ML/HR AT 1015. PT REPORTS TENDERNESS AROUND PEG TUBE INSERTION SITE APPROX 1/2 INCH DIAMETER AROUND AREA. PT REPORTS PAIN HAS IMPROVED SINCE YESTERDAY AND AREA HAS DECREASED. SITE IS CDI, NO REDNESS OR SWELLING OR DRAINAGE. ABD IS SOFT. PT REPORTS PASSING GAS AND HE IS HAVING LIQUID BM'S BROWN COLORED. NORCO STARTED FOR PAIN. DISCUSSED GETTING UP TO CHAIR IN AN HOUR ONCE PAIN MEDICATIONS HAVE TAKEN EFFECT AND PT IN AGREEMENT AT THIS TIME. PT IS URINATING CLEAR YELLOW URINE. CONTINUES TO HAVE A WEAK COUGH. WILL GET ORDER FOR INCENTIVE SPIROMETER. LUNGS ARE CLEAR.
[2024-03-27] MEDS ORDERED: Potassium Phosphate Dibasic 30 MM in Dextrose 5% 500 ML IV ONE (15:00)
[2024-03-27 15:12] VITALS: BP 124/91
--- NOTE | 2024-03-27 17:52 | NUR ---
SHIFT SUMMARY: PT IS A/O X 4, PLEASANT AND COOPERATIVE WITH CARE. PT IS SBA TO CHAIR. PT UP TO CHAIR TODAY IN THE MORNING AND EVENING. PT TOLERATING TUBE FEEDINGS. SET AT 40 ML/HR. NO N/V, ABD DISTENTION OR PAIN NOTED. MAY BE ADVANCED TONIGHT AT 2230. CHANGED OUT TUBE FEEDING BAGS AT 1715. PT PAIN TO PEG TUBE SITE MANAGED WITH NORCO TODAY. PT COMPLETING ORAL CARE Q2 HOURS. PT IS ALSO SELF REPOSTIONING HIMSELF Q2 HOURS. PT HAD ONLY ONE LIQUID BM THIS MORNING.
[2024-03-27 19:48] VITALS: BP 115/77
[2024-03-27] MEDS ORDERED: Doxazosin Mesylate 2 MG Tab PT SCH (21:00)
--- NOTE | 2024-03-28 04:09 | NUR ---
SHIFT SUMMARY. PATIENT IS A&OX4. PATIENT IS A 1P ASSIST TO THE BSC-PATIENT IS WORKING WITH PT/OT/ST. PATIENT CALLS APPROPRIATELY AND IS ABLE TO MAKE HIS NEEDS KNOWN. PATIENTS SPEECH IS QUIET. PATIENT NORMALLY TAKES FINASTRIDE AT BEDTIME AND ASKED THIS RN IF HE WAS GOING TO GET IT TONIGHT-DURING BEDSIDE SHIFT REPORT DAYSHIFT RN REPORTED PATIENT HAD DOES IN THE MORNING AND IT WAS SCHEDULED IN THE MORNING-MEDICATION NOT ON PATIENTS EMAR-ORDER HISTORY SHOWED MEICATION WAS STARTED AND DISCONTINUED BY DAYSNMFT DOCTOR-WILL RELAY TO DAYSNMFT NURSE. PATIENT C/O PAIN X1-MEDICATED PER EMAR. PATIENTS TUBE FEEDING ADVANCED TO 45mL/HR-PATIENT TOLERATING WELL WITH NO COMPLAINTS OF N/V, ABDOMINAL DISTENTION, INCREASED PAIN. PATIENT RESTING OFF AND ON T/E NIGHT WITH RESPIRATIONS EQUAL AND UNLABORED. BED IS LOCKED IN THE LOWEST POSITION WITH CALL LIGHT IN REACH. CARE IS ONGOING.
[2024-03-28 05:10] VITALS: BP 90/67
[2024-03-28] MEDS ORDERED: Levothyroxine Sodium 0.05 MG Tab PT SCH (06:00)
[2024-03-28 06:54] LABS: Bun/Creatinine Ratio 15.2 (12.0-20.0); Calcium, Blood 8.2 mg/dL (8.5-10.1); Creatinine, Blood 0.59 mg/dL (0.60-1.20); Magnesium, Blood 1.6 mg/dL (1.6-2.4); Phosphorus, Blood 2.9 mg/dL (2.5-4.9); Potassium, Blood 3.6 mmol/L (3.5-5.5)
[2024-03-28 07:37] VITALS: BP 103/70
[2024-03-28] MEDS ORDERED: Finasteride 5 MG Tab PT SCH ×2 (09:56→21:00)
--- NOTE | 2024-03-28 11:00 | NUR ---
TUBE FEEDING JEVITY 1.2 RATE INCREASED TO 50ML/HR. PT TOLERATING TUBE FEEDS, NO DIARRHEA.
[2024-03-28 12:24] LABS: BASOPHILS ABSOLUTE AUTO 0.05 K/mm3 (0.00-0.23); BASOPHILS PERCENT AUTO 0 % (0-2); EOSINOPHILS ABSOLUTE AUTO 0.25 K/mm3 (0.00-0.68); EOSINOPHILS PERCENT AUTO 2 % (0-6); Hematocrit 34.2 % (37.0-53.0); Hemoglobin 11.4 g/dL (13.5-17.5); IMMATURE GRAN ABSOLUTE AUTO 0.08 K/mm3 (0.00-0.10); IMMATURE GRAN PERCENT AUTO 1 % (0-1); LYMPHOCYTES ABSOLUTE AUTO 1.21 K/mm3 (0.84-5.20); LYMPHOCYTES PERCENT AUTO 10 % (21-46); MONOCYTES ABSOLUTE AUTO 0.66 K/mm3 (0.16-1.47); MONOCYTES PERCENT AUTO 6 % (4-13); Mean Corpuscular HGB 28.7 pg (26.0-34.0); Mean Corpuscular HGB Conc 33.3 g/dL (31.5-36.5); Mean Corpuscular Volume 86 fL (80-100); NEUTROPHILS ABSOLUTE AUTO 9.45 K/mm3 (1.96-9.15); NEUTROPHILS PERCENT AUTO 81 % (41-73); Platelet Count 382 K/mm3 (150-400); RDW Coefficient Variation 13.8 % (11.7-14.2); RDW Standard Deviation 43.1 fL (35.1-46.3); Red Blood Cell Count 3.97 M/mm3 (4.30-5.90)
[2024-03-28 15:33] VITALS: BP 121/93
--- NOTE | 2024-03-28 17:05 | NUR ---
SHIFT SUMMARY MR AMBROSIO IS ORIENTATED X4. HE SAID THAT GENERALLY HE'S FEELING IMPROVEMENT. ABDOMINAL PAIN IS LESS THAN IT WAS A FEW DAYS AGO, HE SAID HE FEELS STRONGER THAN A FEW DAYS AGO. HE GOT UP TO THE CHAIR WITH O.T. BUT ONLY TOLERATED SITTING UP FOR ABOUT 20 MINUTES AND DID NOT WANT TO GET UP AGAIN. HE HAS MOIST PRIDUCTIVE COUGH. HE HAS BEEN EDUCATED ON INCENTIVE SPIROMETER BUT HE DECLINES TO DO IT IN FEAR OF ABDOMINAL PAIN DESPITE EDUCATION ON BENEFITS. TOLERATING TUBE FEEDING WELL. NO STOOL TODAY. JEVITY RATE INCREASED TO 50CC/HR AT 1055AM. HE SLEPT WELL THIS AFTERNOON. BED LOW, CALL LIGHT IN REACH.
[2024-03-28 20:25] VITALS: BP 105/61
--- NOTE | 2024-03-28 22:30 | NUR ---
TUBE FEED. TUBE FEED RATE INCREASED FROM 50mL/hr TO 55mL/HR. MAY INCREASE TO GOAL OF 60 AT 1030 IF LONG PATIENT TOLERATES TUBE FEEDING AT 55mL/HR PER ORDER.
[2024-03-29 04:53] VITALS: BP 100/66
[2024-03-29 06:15] LABS: BASOPHILS ABSOLUTE AUTO 0.06 K/mm3 (0.00-0.23); BASOPHILS PERCENT AUTO 0 % (0-2); EOSINOPHILS ABSOLUTE AUTO 0.31 K/mm3 (0.00-0.68); EOSINOPHILS PERCENT AUTO 2 % (0-6); Hemoglobin 10.6 g/dL (13.5-17.5); IMMATURE GRAN ABSOLUTE AUTO 0.13 K/mm3 (0.00-0.10); IMMATURE GRAN PERCENT AUTO 1 % (0-1); LYMPHOCYTES ABSOLUTE AUTO 1.17 K/mm3 (0.84-5.20); LYMPHOCYTES PERCENT AUTO 8 % (21-46); MONOCYTES ABSOLUTE AUTO 1.01 K/mm3 (0.16-1.47); MONOCYTES PERCENT AUTO 7 % (4-13); Mean Corpuscular HGB 28.6 pg (26.0-34.0); Mean Corpuscular HGB Conc 33.1 g/dL (31.5-36.5); Mean Corpuscular Volume 87 fL (80-100); Mean Platelet Volume 10.1 fL (9.1-12.4); NEUTROPHILS PERCENT AUTO 82 % (41-73); Platelet Count 376 K/mm3 (150-400); RDW Coefficient Variation 13.7 % (11.7-14.2); RDW Standard Deviation 42.9 fL (35.1-46.3); White Blood Cell Count 14.68 K/mm3 (4.00-11.30)
[2024-03-29 06:35] LABS: Bun/Creatinine Ratio 21.9 (12.0-20.0); Calcium, Blood 8.2 mg/dL (8.5-10.1); Creatinine, Blood 0.55 mg/dL (0.60-1.20); Magnesium, Blood 1.7 mg/dL (1.6-2.4); Phosphorus, Blood 2.6 mg/dL (2.5-4.9); Potassium, Blood 3.9 mmol/L (3.5-5.5)
--- NOTE | 2024-03-29 06:42 | NUR ---
SHIFT SUMMARY. PATIENT IS A&OX4. PATIENT IS PLEASANT AND COOPERATIVE WITH CARE. PATIENTS PEG TUBE ADVANCED AT 2230 ON 03/28/24 TO 55mL/hr- PATIENT TOLERATING TUBE FEEDING-NO N/V, ABDOMINAL DISTENTION OR INCREASED ABD PAIN. PATIENT HAD 1 SMALL SOFT BM THIS AM. PATIENT IS ABLE TO MAKE HIS NEEDS KNOWN. PATIENTS DAUGHTER IN TO VISIT THIS SHIFT-DAUGHTER STATED "SHE WILL TAKE PATIENT TO APPOINTMENTS IN [place] IF PATIENT NEEDS". PATIENT RESTING OFF AND ON T/O NIGHT WITH RESPIRATIONS EQUAL AND UNLABORED. PATIENT USING URINAL AT BEDSIDE. PATIENT INCONTINENT AT THIS TIME OF BOWEL. TUBE FEEDING HELD AT 0637 AND LEVOTHYROXINE WILL NEED TO BE GIVEN AT 0737-WILL REPORT TO DAY SHIFT NURSE. BED IS LOCKED IN THE LOWEST POSITION [facility] CALL LIGHT IN REACH. REPORT TO BE GIVEN TO DAYSHIFT.
[2024-03-29 07:18] VITALS: BP 114/74
[2024-03-29] MEDS ORDERED: Potassium Phos/Sodium Phos 250 MG PACK PO SCH (08:00)
[2024-03-29] MEDS ORDERED: Piperacillin/Tazobactam Sod 3.375 GM in NS 100 ML IV SCH (14:00)
[2024-03-29 16:01] VITALS: BP 110/73
--- NOTE | 2024-03-29 18:34 | NUR ---
SHIFT [place] PT CONT LEVEL OF CARE WITH NO ACUTE CHANGES NOTED. PT REMAINS A&OX4 AND ASSIST X1 TO BEDSIDE COMMONDE AND RECLINER. PT CONT TO REMAIN NPO WITH FEEDINGS THROUGH PEG TUBE RUNNING AT 60ML/HR. PT DAUGHTER AT BEDSIDE THROUGHOUT THIS SHIFT. PT NOTED TO HAVE SOME INCONT WITH BOWEL BUT CONT WITH BLADDER.
[2024-03-29 19:54] VITALS: BP 146/87
[2024-03-29] MEDS ORDERED: Magnesium Oxide 400 MG Tab PO SCH (21:00)
[2024-03-29] MEDS ORDERED: Magnesium Oxide 400 MG Tab PT SCH (21:00)
--- NOTE | 2024-03-30 04:43 | NUR ---
SHIFT SUMMARY PATIENT HAD NO ACUTE CHANGES. AXOX 4 AND ONE ASSIST TO BSC. NPO WITH PEG TUBE INFUSING JEVITY @ 60 mL/HR. DENIES CHEST PAIN, SOB, AND N/V. VSS/AFEBRILE. REPORTED ABDOMEN PAIN X ONE AND NORCO. PIV INTACT. IV ABX INFUSED. DAUGHTER PRESENT PLUS OTHERS AT SHIFT CHANGE STAYING FOR A FEW HOURS. SLEPT ON/OFF. CALL LIGHT IN REACH. BED IN LOWEST POSITION. WILL CONTINUE TO MONITOR UNTIL DAY SHIFT NURSE ASSUMES CARE.
[2024-03-30 05:17] VITALS: BP 120/69
[2024-03-30 05:28] LABS: BASOPHILS ABSOLUTE AUTO 0.07 K/mm3 (0.00-0.23); BASOPHILS PERCENT AUTO 1 % (0-2); EOSINOPHILS ABSOLUTE AUTO 0.26 K/mm3 (0.00-0.68); EOSINOPHILS PERCENT AUTO 2 % (0-6); Hematocrit 30.4 % (37.0-53.0); Hemoglobin 10.2 g/dL (13.5-17.5); IMMATURE GRAN ABSOLUTE AUTO 0.07 K/mm3 (0.00-0.10); IMMATURE GRAN PERCENT AUTO 1 % (0-1); LYMPHOCYTES ABSOLUTE AUTO 0.82 K/mm3 (0.84-5.20); LYMPHOCYTES PERCENT AUTO 8 % (21-46); MONOCYTES ABSOLUTE AUTO 0.83 K/mm3 (0.16-1.47); MONOCYTES PERCENT AUTO 8 % (4-13); Mean Corpuscular HGB Conc 33.6 g/dL (31.5-36.5); Mean Corpuscular Volume 86 fL (80-100); Mean Platelet Volume 9.8 fL (9.1-12.4); NEUTROPHILS ABSOLUTE AUTO 8.63 K/mm3 (1.96-9.15); NEUTROPHILS PERCENT AUTO 81 % (41-73); Platelet Count 346 K/mm3 (150-400); RDW Coefficient Variation 13.9 % (11.7-14.2); RDW Standard Deviation 43.5 fL (35.1-46.3); Red Blood Cell Count 3.52 M/mm3 (4.30-5.90); White Blood Cell Count 10.68 K/mm3 (4.00-11.30)
[2024-03-30 06:02] LABS: Albumin, Blood 1.6 g/dL (3.4-5.0); Anion Gap 10 mmol/L (3-11); Blood Urea Nitrogen 13 mg/dL (8-24); Bun/Creatinine Ratio 18.7 (12.0-20.0); CO2, Blood 27 mmol/L (21-32); Calcium, Blood 7.9 mg/dL (8.5-10.1); Chloride, Blood 100 mmol/L (98-108); Glomerular Filtration Rate 96 (60-); Glucose, Blood 100 mg/dL (70-99); Magnesium, Blood 1.7 mg/dL (1.6-2.4); Potassium, Blood 3.9 mmol/L (3.5-5.5); Sodium, Blood 133 mmol/L (136-145)
[2024-03-30 07:45] VITALS: BP 111/75
[2024-03-30] MEDS ORDERED: Enoxaparin 40 MG/0.4 ML SYR SC SCH (14:00)
[2024-03-30 14:51] VITALS: BP 124/83
--- NOTE | 2024-03-30 15:56 | NUR ---
SHIFT SUMMARY PT AWAKE FOR SHIFT REPORT THIS AM. TUBE FEED INFUSING AT GOAL; PT TOLERATING WELL. PT'S DAUGHTER HERE FOR A WHILE AND TO RETURN IN AM. DR SMITH HERE TO SEE PT WHILE DOWN AT IMAGING AND NOW RETURNED TO TALKING WITH PT. PT WAITING FOR TUBE FEEDING SUPPLIES TO BE DELIVERED TO HOME IN ORDER TO D/C. PT USING URINAL INDEPENDENTLY. UP TO BSC EARLIER TODAY. UP TO CHAIR AT BS FOR A WHILE THIS AM. CALL LT IN REACH, PT ABLE TO MAKE NEEDS KNOWN.
[2024-03-30 19:45] VITALS: BP 134/83
[2024-03-31 03:31] VITALS: BP 132/88
--- NOTE | 2024-03-31 04:19 | NUR ---
SHIFT SUMMARY PATIENT HAD NO ACUTE CHANGES. AXOX 4 AND ONE ASSIST TO BSC. NPO WITH PEG TUBE INTACT AND JEVITY INFUSING @ 60 mL/HR. DENIES CHEST PAIN, SOB, AND N/V. NEW PIV PLACED. IV ABX INFUSED. NO VISITORS THIS SHIFT. PATIENT AWAKE FIRST PART OF SHIFT WATCHING TV BEFORE SLEEPING. CALL LIGHT IN REACH. BED IN LOWEST POSITION. WILL CONTINUE TO MONITOR UNTIL DAY SHIFT NURSE ASSUMES CARE.
[2024-03-31 07:26] VITALS: BP 115/77
[2024-03-31 07:29] LABS: BASOPHILS ABSOLUTE AUTO 0.07 K/mm3 (0.00-0.23); BASOPHILS PERCENT AUTO 1 % (0-2); EOSINOPHILS ABSOLUTE AUTO 0.27 K/mm3 (0.00-0.68); EOSINOPHILS PERCENT AUTO 3 % (0-6); Hematocrit 32.2 % (37.0-53.0); Hemoglobin 10.6 g/dL (13.5-17.5); IMMATURE GRAN ABSOLUTE AUTO 0.08 K/mm3 (0.00-0.10); IMMATURE GRAN PERCENT AUTO 1 % (0-1); LYMPHOCYTES ABSOLUTE AUTO 0.77 K/mm3 (0.84-5.20); LYMPHOCYTES PERCENT AUTO 7 % (21-46); MONOCYTES ABSOLUTE AUTO 0.95 K/mm3 (0.16-1.47); MONOCYTES PERCENT AUTO 9 % (4-13); Mean Corpuscular HGB 28.6 pg (26.0-34.0); Mean Corpuscular HGB Conc 32.9 g/dL (31.5-36.5); Mean Corpuscular Volume 87 fL (80-100); Mean Platelet Volume 9.9 fL (9.1-12.4); NEUTROPHILS ABSOLUTE AUTO 8.71 K/mm3 (1.96-9.15); NEUTROPHILS PERCENT AUTO 80 % (41-73); Platelet Count 379 K/mm3 (150-400); RDW Standard Deviation 44.7 fL (35.1-46.3); White Blood Cell Count 10.85 K/mm3 (4.00-11.30)
[2024-03-31 07:48] LABS: Albumin, Blood 1.8 g/dL (3.4-5.0); Albumin/Globulin Ratio 0.4 (0.8-1.8); Bilirubin, Total 0.2 mg/dL (0.1-1.0); Bun/Creatinine Ratio 17.8 (12.0-20.0); Calcium, Blood 8.3 mg/dL (8.5-10.1); Creatinine, Blood 0.62 mg/dL (0.60-1.20); Globulin, Blood 4.3 g/dL (2.2-4.0); Potassium, Blood 3.9 mmol/L (3.5-5.5); Total Protein, Blood 6.1 g/dL (6.4-8.2)
[2024-03-31 15:11] VITALS: BP 96/76
--- NOTE | 2024-03-31 16:40 | NUR ---
SHIFT SUMMARY PT AWAKE DURING SHIFT REPORT, WATCHING TV. PT IS A&O, PLEASANT AND CO-OP WITH CARE. FACILITIES ENGINEERING MANAGER TO EARLY THIS AM TO ASSESS PT FOR BOLUS FEEDS. PT ASSESSED AND ORDERS PLACED. JEVITY 1.[address] SMITH UPDATED ON PT CARE AND EDUCATION. PT ABLE TO ASSIST WITH FEEDING AND IS TOLERATING BOLUS FEEDS TO PRESENT. GOAL FOR DAY 1 IS 4 CANS WITH 100cc WATER FLUSH BEFORE AND AFTER EACH FEED; TOTAL 800cc WATER/DAY. LICENSED THERAPIST ASSISTING WITH INSURANCE DEMANDS AND ISSUES. PT TO D/C HOME WHEN SUPPLIES ARE DELIVERED. ORTHO VS DONE THIS AFTERNOON, PER ORDERS. UP TO BSC FOR BM EARLIER TODAY. PT IS RESTING QUIETLY WATCHING FOOTBALL AT THIS TIME. NO C/O. CALL LT IN REACH.
[2024-03-31 19:22] VITALS: BP 111/75
[2024-04-01 03:13] VITALS: BP 146/87
--- NOTE | 2024-04-01 04:34 | NUR ---
SHIFT SUMMARY PATIENT HAD NO ACUTE CHANGES. AXOX 4 AND ONE ASSIST TO BSC. NPO WITH PEG TUBE INTACT. ONE JEVITY FEEDING PER ORDER. DENIES CHEST PAIN, SOB, AND N/V. VSS/AFEBRILE. REPORTED ABDOMINAL PAIN ABOVE PEG TUBE SITE AND PAIN MEDICATION GIVEN PER EMAR. WATCHED TV FIRST PART OF SHIFT. CALL LIGHT IN REACH. BED IN LOWEST POSITION. WILL CONTINUE TO MONITOR UNTIL DAY SHIFT NURSE ASSUMES CARE.
[2024-04-01 05:40] LABS: BASOPHILS ABSOLUTE AUTO 0.07 K/mm3 (0.00-0.23); BASOPHILS PERCENT AUTO 1 % (0-2); EOSINOPHILS PERCENT AUTO 3 % (0-6); Hematocrit 35.7 % (37.0-53.0); Hemoglobin 11.8 g/dL (13.5-17.5); IMMATURE GRAN ABSOLUTE AUTO 0.05 K/mm3 (0.00-0.10); IMMATURE GRAN PERCENT AUTO 1 % (0-1); LYMPHOCYTES ABSOLUTE AUTO 1.36 K/mm3 (0.84-5.20); LYMPHOCYTES PERCENT AUTO 13 % (21-46); MONOCYTES ABSOLUTE AUTO 0.86 K/mm3 (0.16-1.47); MONOCYTES PERCENT AUTO 9 % (4-13); Mean Corpuscular HGB 28.8 pg (26.0-34.0); Mean Corpuscular HGB Conc 33.1 g/dL (31.5-36.5); Mean Corpuscular Volume 87 fL (80-100); NEUTROPHILS PERCENT AUTO 74 % (41-73); Platelet Count 451 K/mm3 (150-400); RDW Coefficient Variation 14.1 % (11.7-14.2); RDW Standard Deviation 44.9 fL (35.1-46.3); White Blood Cell Count 10.14 K/mm3 (4.00-11.30)
[2024-04-01 06:19] LABS: Albumin/Globulin Ratio 0.4 (0.8-1.8); Bilirubin, Total 0.3 mg/dL (0.1-1.0); Bun/Creatinine Ratio 17.2 (12.0-20.0); Calcium, Blood 8.8 mg/dL (8.5-10.1); Creatinine, Blood 0.7 mg/dL (0.60-1.20); Globulin, Blood 4.8 g/dL (2.2-4.0); Phosphorus, Blood 3.2 mg/dL (2.5-4.9); Potassium, Blood 3.7 mmol/L (3.5-5.5); Total Protein, Blood 6.8 g/dL (6.4-8.2)
[2024-04-01 07:38] VITALS: BP 133/90
[2024-04-01 15:49] VITALS: BP 116/76
[2024-04-01 19:23] VITALS: BP 97/63
--- NOTE | 2024-04-01 19:37 | NUR ---
DAY SHIFT SUMMARY: A&Ox4. PLEASANT AND COOPERATIVE WITH CARE. CALLS APPROPRIATELY AND IS ABLE TO ADVOCATE NEEDS EFFECTIVELY. NO ACUTE CONCERNS TODAY. GRANDSON IN TODAY TO DISCUSS TUBE FEEDINGS WITH FISH SMOKERJOAN. TOLERATING 1 CONTAINER OF LIDIA 1.5 QID TODAY c FLUSH PRIOR AND FOLLOWING FEEDING. MEDICATED PRN x2 C / O ABD PAIN. MEDS CRUSHED VIA PEG TUBE. BED IN LOWEST POSITION, CALL LIGHT WITHIN REACH, ALL NEEDS MET. REPORT TO ONCOMING NURSE.
[2024-04-02 01:26] VITALS: BP 137/86
--- NOTE | 2024-04-02 04:18 | NUR ---
SHIFT SUMMARY ADMITTED FOR ASPIRATION PNEUMONIA. FULL CODE. BOLUS FEEDINGS QID VIA PEG TUBE ARE SCHEDULED. IV ANTIB ARE SCHEDULED. PLANNING ON DC HOME W/FAMILY AND HH WHEN ARRANGEMENTS CAN BE SET UP. STRICT NPO. A&O X3-4. 1 ASSIST TO BSC. ON RA. [facility] PATIENT. PAIN MEDICATION GIVEN THIS SHIFT. REMOTE HX OF TONGUE CANCER-SURGERY & RADIATION IN 1995.
[2024-04-02 05:36] LABS: BASOPHILS ABSOLUTE AUTO 0.07 K/mm3 (0.00-0.23); BASOPHILS PERCENT AUTO 1 % (0-2); EOSINOPHILS ABSOLUTE AUTO 0.42 K/mm3 (0.00-0.68); EOSINOPHILS PERCENT AUTO 5 % (0-6); Hematocrit 33.2 % (37.0-53.0); Hemoglobin 11.2 g/dL (13.5-17.5); IMMATURE GRAN ABSOLUTE AUTO 0.04 K/mm3 (0.00-0.10); IMMATURE GRAN PERCENT AUTO 0 % (0-1); LYMPHOCYTES ABSOLUTE AUTO 1.05 K/mm3 (0.84-5.20); LYMPHOCYTES PERCENT AUTO 12 % (21-46); MONOCYTES ABSOLUTE AUTO 0.84 K/mm3 (0.16-1.47); MONOCYTES PERCENT AUTO 9 % (4-13); Mean Corpuscular HGB 28.9 pg (26.0-34.0); Mean Corpuscular HGB Conc 33.7 g/dL (31.5-36.5); Mean Corpuscular Volume 86 fL (80-100); Mean Platelet Volume 9.9 fL (9.1-12.4); NEUTROPHILS ABSOLUTE AUTO 6.71 K/mm3 (1.96-9.15); NEUTROPHILS PERCENT AUTO 74 % (41-73); Platelet Count 431 K/mm3 (150-400); RDW Coefficient Variation 14.1 % (11.7-14.2); RDW Standard Deviation 43.7 fL (35.1-46.3); Red Blood Cell Count 3.88 M/mm3 (4.30-5.90); White Blood Cell Count 9.13 K/mm3 (4.00-11.30)
[2024-04-02 06:05] LABS: Bun/Creatinine Ratio 22.5 (12.0-20.0); Creatinine, Blood 0.71 mg/dL (0.60-1.20); Potassium, Blood 3.9 mmol/L (3.5-5.5)
[2024-04-02 07:35] VITALS: BP 105/75
[2024-04-02 15:42] VITALS: BP 131/85
--- NOTE | 2024-04-02 19:26 | NUR ---
END OF SHIFT SUMMARY: A&Ox4. PLEASANT AND COOPERATIVE WITH CARE. CALLS APPROPRIATELY AND IS ABLE TO ADVOCATE NEEDS EFFECTIVELY. CONTINENT OF BOWEL AND BLADDER. 1PA c FWW TO BSC OR RECLINER. VOIDS USING BEDSIDE URINAL. MEDS CRUSHED VIA PEG TUBE. C/O PAIN; MEDICATED TWICE C/O ABD PAIN. FEEDINGS INCREASED TO 1.5 CANS BID c 100mL FLUSH BEFORE AND AFTER. TOLERATED WELL. PATIENT SPOKE WITH [facility] TODAY AND PRIOR AUTHORIZATION BEING PROCESSED FOR PATIENT TO ESTABLISH WITH DR. KNOWLES PCP; [facility] TOMORROW c [facility]. BED IN LOWEST POSITION, CALL LIGHT WITHIN REACH, ALL NEEDS MET. REPORT TO ONCOMING NURSE.
[2024-04-02 20:10] VITALS: BP 103/72
[2024-04-03 02:13] VITALS: BP 136/84
--- NOTE | 2024-04-03 03:20 | NUR ---
SHIFT SUMMARY NO ACUTE EVENTS DURING THIS SHIFT. PT REMAINS NPO. MEDICATIONS CRUSHED WITH H2O INTO PEG TUBE. PT TOLERATING WELL. PRN NORCO FOR C/O 7/10 ABDOMINAL PAIN, PT REPORTS EFFECTIVE. URINAL BY THE BEDSIDE, PT IS ABLE TO MAKE HIS NEEDS KNOWN, AND IS COOPERATIVE WITH CARE. AWAITING FOR D/C TO HOME WITH HOMEHEALTH. BED AT THE LOWEST POSITION, CALL LIGHT WITHIN REACH.
[2024-04-03 07:22] VITALS: BP 148/78
[2024-04-03] MEDS ORDERED: LEVOTHYROXINE50 MCG PO (17:11)
[2024-04-03] MEDS ORDERED: Norco 5-325 Ta1 EACH PO (17:13)
[2024-04-03] MEDS ORDERED: DOCU100 PT (17:13)
[2024-04-03] MEDS ORDERED: MAGNESIUM OXID400 M2 PT (17:14)
[2024-04-03] MEDS ORDERED: B-1100 M1 PT (17:18)
[2024-04-03] MEDS ORDERED: VISBIOME 112.51 EACH PT (17:19)
[2024-04-03] MEDS ORDERED: AMOCLA875 PT (17:19)
[2024-04-03] MEDS ORDERED: SODIUM PHOSPHA100 GM PT (17:24)
[2024-04-03 19:19] VITALS: BP 170/106
== END 2024-04-03 20:32 | disposition home health service (06) | DRG 871 ==
LOC: ER 16:32 → MEDS 20:37
PROVIDERS: Emergency Medicine; Family Medicine; Student in an Organized Health Care Education/Training Program; Surgery; ADMIT Internal Medicine
PROC: 3E03329 Introduction of Other Anti-infective into Peripheral Vein, Percutaneous Approach (ICD-10-PCS; 2024-03-19)
PROC: 0DH63UZ Insertion of Feeding Device into Stomach, Percutaneous Approach (ICD-10-PCS; principal; 2024-03-24 10:00)
DX: A40.1 Sepsis due to streptococcus, group B (principal); J18.9 Pneumonia, unspecified organism; J69.0 Pneumonitis due to inhalation of food and vomit; E87.1 Hypo-osmolality and hyponatremia; R64 Cachexia; E44.0 Moderate protein-calorie malnutrition; Z68.1 Body mass index [BMI] 19.9 or less, adult; B37.7 Candidal sepsis; I10 Essential (primary) hypertension; E87.6 Hypokalemia; E83.42 Hypomagnesemia; E03.9 Hypothyroidism, unspecified; F17.220 Nicotine dependence, chewing tobacco, uncomplicated; R13.13 Dysphagia, pharyngeal phase; I95.1 Orthostatic hypotension; D48.7 Neoplasm of uncertain behavior of other specified sites; F10.10 Alcohol abuse, uncomplicated; N40.0 Benign prostatic hyperplasia without lower urinary tract symptoms; Z85.810 Personal history of malignant neoplasm of tongue; Z92.3 Personal history of irradiation; Z79.890 Hormone replacement therapy; Z79.899 Other long term (current) drug therapy; Z85.068 Personal history of other malignant neoplasm of small intestine
CPT/HCPCS: 0241U; 36415; 71046; 71260; 80048; 80053; 80069; 82330; 82947; 83605; 83735; 84100; 84132; 84145; 84439; 84443; 84481; 84484; 85025; 85027; 87070; 87077; 87147; 87186; 87205; 92526; 92610; 93005; 93010; 96365; 97110; 97161; 97165; 97530; 97535; 99285-25; A9270; C1769; J1650; J2543; J2704; J3010; J3411; J3475; J3480; J7040; J7050; J7060; J7070; J7120; J7121; Q9967

== ENCOUNTER → 2024-06-17 | Outpatient (CLI) | payer OTHER ==
[~2024-06-17] MED LIST: AMLO10 PO; AMOCLA875 PT; B-1100 M1 PT; DOCU100 PT; EUTHYROX88 MCG PO; FINA5 PO; LEVOTHYROXINE50 MCG PO; LOSA50 PO; MAGNESIUM OXID400 M2 PT; Norco 5-325 Ta1 EACH PO; SODIUM PHOSPHA100 GM PT; TAMS.4ER PO; VISBIOME 112.51 EACH PT
== END | disposition home or self-care (01) ==
LOC: PLD 08:13 → LAB SHORT 08:13
DX: D49.2 Neoplasm of unspecified behavior of bone, soft tissue, and skin (principal)
CPT/HCPCS: 88305